=== PATIENT | female | born 1950 | race Caucasian/White ===

== ENCOUNTER 2023-07-16 15:17 | Emergency (ER) | payer MEDICARE, MEDICAID ==
[~2023-07-16] VITALS: Ht 157.5 cm; Wt 75.7 kg
[2023-07-16 15:17] VITALS: BP_SYST 154; PULSE 89; RESP 18; TEMP 98.4; O2SAT 97
[2023-07-16] MEDS ORDERED: METH-776 PO (16:02)
[2023-07-16] MEDS ORDERED: METH2.5T PO (16:02)
== END 2023-07-16 17:04 | disposition home or self-care (01) ==
LOC: SED 15:17
DX: L12.0 Bullous pemphigoid (principal); Z88.0 Allergy status to penicillin; Z88.6 Allergy status to analgesic agent; Z79.899 Other long term (current) drug therapy
CPT/HCPCS: 99283

== ENCOUNTER 2023-12-20 14:44 | Inpatient (IN) | payer MEDICARE, MEDICAID ==
[~2023-12-20] VITALS: Ht 160 cm; Wt 74.8 kg
[~2023-12-20 14:44] MED LIST: METH-776 PO; METH2.5T PO
[2023-12-20 15:06] VITALS: BP_SYST 154; PULSE 112; RESP 18; TEMP 98.3; O2SAT 98
[2023-12-20 16:16] LABS: HEMATOCRIT 36.9 % (36-48); HEMOGLOBIN 12.5 g/dL (12.0-16.0); MEAN CORPUSCULAR HEMOGLOBIN 30 pg (27-31); MEAN CORPUSCULAR HGB CONC 34 % (32-36); MEAN CORPUSCULAR VOLUME 89 fL (79.0-98.0); PLATELET COUNT (AUTO) 201 K/uL (130-430); RED BLOOD CELL COUNT(AUTO) 4.15 MIL/uL (4.2-6.2); RED CELL DISTRIBUTION WIDTH 12.6 % (9.0-15.0); WHITE BLOOD COUNT (AUTO) 24.7 K/uL (4.8-10.8)
[2023-12-20 16:29] LABS: ANION GAP 9 (5-15); CALCIUM 9.9 mg/dL (8.4-11.0); CARBON DIOXIDE 27 mmol/L (23-29); CHLORIDE 99 mmol/L (98-107); GLUCOSE 173 mg/dL (74-106); POTASSIUM 3.9 mmol/L (3.5-5.1); SODIUM SERUM 135 mmol/L (136-145); UREA NITROGEN, BLOOD 20 mg/dL (8-21)
[2023-12-20 18:12] LABS: BAND % (MANUAL) 7 % (0-6); BASOPHILS % (MANUAL) 0 % (0-2); EOSINOPHILS % (MANUAL) 1 % (0-7); LYMPHOCYTES % (MANUAL) 5 % (20-46); MONOCYTES % (MANUAL) 5 % (0-11); PLATELET ESTIMATE ADEQUATE (ADEQUATE)
[2023-12-20] MEDS ORDERED: cefTRIAXone 1 GM VIAL ONE (18:16)
[2023-12-20 18:24] LABS: ALBUMIN 3.4 g/dL (3.4-4.8); BILIRUBIN,DIRECT 0.1 mg/dL (0.0-0.3); TOTAL BILIRUBIN 0.4 mg/dL (0.0-1.0); TOTAL PROTEIN, SERUM 7.8 g/dL (6.4-8.3)
[2023-12-20 18:38] LABS: PROTHROMBIN TIME 10.5 SECS (9.5-12.5)
[2023-12-20] MEDS: NS 500 ML IV ONE (19:09)
[2023-12-20] MEDS: cefTRIAXone 1 GM in D5W 50 ML IV ONE (19:09)
[2023-12-20 19:41] LABS: BILIRUBIN,URINE NEGATIVE (NEGATIVE); BLOOD, URINE 1+ (NEGATIVE); COLOR,URINE YELLOW (YELLOW); GLUCOSE,URINE NEGATIVE (NEGATIVE); KETONES,URINE NEGATIVE (NEGATIVE); LEUKOCYTE ESTERASE ,URINE 3+ (NEGATIVE); NITRITE, URINE NEGATIVE (NEGATIVE); PROTEIN URINE NEGATIVE (NEGATIVE); UROBILINOGEN,URINE 0.2 (0.2-1.0)
[2023-12-20 20:01] LABS: CLARITY/URINE SLIGHTLY HAZY (CLEAR)
[2023-12-20 20:13] LABS: BACTERIA,URINE MODERATE /HPF (None Seen); WBC,URINE 80-100 /HPF (0-3)
[2023-12-20 20:14] LABS: MUCUS,URINE None Seen /LPF (None Seen)
[2023-12-20] MEDS ORDERED: CHLO25TA2 PO (21:42)
[2023-12-20] MEDS ORDERED: CORCR20 PO (21:42)
[2023-12-20] MEDS ORDERED: SSNOVOLOG SUBCUT (21:42)
[2023-12-20] MEDS ORDERED: METF-1069 PO (21:42)
[2023-12-20 21:57] VITALS: BP_SYST 148; PULSE 92; RESP 18; TEMP 97.8
[2023-12-20] MEDS: D5/0.45 NS 1,000 ML IV ONE (22:02)
[2023-12-20 22:07] VITALS: O2SAT 95
[2023-12-21] VITALS: BP_SYST 132; PULSE 74; RESP 16; TEMP 97.9; O2SAT 98
[2023-12-21] MEDS ORDERED: CHLO50TA PO (07:13)
[2023-12-21] MEDS ORDERED: CARV25TA55 PO (07:13)
[2023-12-21] MEDS ORDERED: METF-381 PO (07:13)
[2023-12-21 08:05] VITALS: BP_SYST 138; PULSE 99; RESP 16; TEMP 99; O2SAT 96
[2023-12-21 09:55] VITALS: O2SAT 96
[2023-12-21] MEDS ORDERED: INSULIN ASPART 100 UNITS/ML, 10 ML VIAL (NovoLOG) SUBCUT PRN (10:15)
[2023-12-21 11:39] LABS: BASOPHILS # (AUTO) 0.1 K/uL (0.0-0.2); BASOPHILS % (AUTO) 0.5 % (0.0-2.0); EOSINOPHILS # (AUTO) 0.1 K/uL (0.0-0.4); EOSINOPHILS % (AUTO) 1.1 % (0.0-4.0); HEMATOCRIT 36.7 % (36-48); HEMOGLOBIN 12.6 g/dL (12.0-16.0); LYMPHOCYTES # (AUTO) 1.4 K/uL (1.0-5.5); LYMPHOCYTES % (AUTO) 10.9 % (20.5-51.5); MEAN CORPUSCULAR HEMOGLOBIN 30 pg (27-31); MEAN CORPUSCULAR HGB CONC 34 % (32-36); MEAN CORPUSCULAR VOLUME 88 fL (79.0-98.0); MONOCYTES # (AUTO) 1.5 K/uL (0.0-1.0); MONOCYTES % (AUTO) 11.7 % (1.7-9.3); NEUTROPHILS # (AUTO) 9.6 K/uL (1.8-7.7); NEUTROPHILS % (AUTO) 75.8 % (40.0-70.0); PLATELET COUNT (AUTO) 226 K/uL (130-430); RED BLOOD CELL COUNT(AUTO) 4.16 MIL/uL (4.2-6.2); RED CELL DISTRIBUTION WIDTH 12.3 % (9.0-15.0); WHITE BLOOD COUNT (AUTO) 12.7 K/uL (4.8-10.8)
[2023-12-21 12:57] VITALS: BP_SYST 130; PULSE 89; RESP 19; TEMP 98.3; O2SAT 98
[2023-12-21 16:11] VITALS: BP_SYST 130; PULSE 95; RESP 18; TEMP 99.6; O2SAT 97
[2023-12-21] MEDS: INSULIN LISPRO SLIDING SCALE 100 UNITS/ML, 3 ML VIAL (humaLOG) SUBCUT PRN (17:24)
[2023-12-21] MEDS: metFORMIN HCL 500 MG TABLET PO SCH (18:14)
[2023-12-21 20:00] VITALS: BP_SYST 112; PULSE 93; RESP 16; TEMP 98.9; O2SAT 98
[2023-12-21] MEDS: CEFEPIME 2 GM in D5W 100 ML IV SCH (20:32)
[2023-12-21] MEDS: CARVEDILOL 25 MG TABLET (COREG) PO SCH (20:32)
[2023-12-21] MEDS ORDERED: cefTRIAXone 1 GM in D5W 50 ML IV SCH (21:00)
[2023-12-22] VITALS: BP_SYST 110; PULSE 75; RESP 16; TEMP 99.2; O2SAT 98
[2023-12-22 08:04] LABS: BASOPHILS % (AUTO) 0.4 % (0.0-2.0); EOSINOPHILS # (AUTO) 0.2 K/uL (0.0-0.4); EOSINOPHILS % (AUTO) 1.9 % (0.0-4.0); HEMATOCRIT 35.3 % (36-48); HEMOGLOBIN 12.1 g/dL (12.0-16.0); LYMPHOCYTES # (AUTO) 1.3 K/uL (1.0-5.5); LYMPHOCYTES % (AUTO) 11.8 % (20.5-51.5); MEAN CORPUSCULAR HEMOGLOBIN 30 pg (27-31); MEAN CORPUSCULAR HGB CONC 34 % (32-36); MEAN CORPUSCULAR VOLUME 87 fL (79.0-98.0); MONOCYTES # (AUTO) 1.5 K/uL (0.0-1.0); NEUTROPHILS # (AUTO) 7.7 K/uL (1.8-7.7); NEUTROPHILS % (AUTO) 71.9 % (40.0-70.0); PLATELET COUNT (AUTO) 220 K/uL (130-430); RED BLOOD CELL COUNT(AUTO) 4.04 MIL/uL (4.2-6.2); RED CELL DISTRIBUTION WIDTH 12.1 % (9.0-15.0); WHITE BLOOD COUNT (AUTO) 10.7 K/uL (4.8-10.8)
[2023-12-22 08:18] LABS: ANION GAP 9 (5-15); CALCIUM 9.5 mg/dL (8.4-11.0); CARBON DIOXIDE 29 mmol/L (23-29); CHLORIDE 98 mmol/L (98-107); CREATININE 0.93 mg/dL (0.55-1.30); GLUCOSE 216 mg/dL (74-106); POTASSIUM 3.5 mmol/L (3.5-5.1); SODIUM SERUM 136 mmol/L (136-145); UREA NITROGEN, BLOOD 16 mg/dL (8-21)
[2023-12-22 08:38] VITALS: BP_SYST 132; RESP 16; TEMP 98.6
[2023-12-22] MEDS: CHLORTHALIDONE 25 MG TABLET (HYGROTON) PO SCH (08:47)
[2023-12-22 10:12] VITALS: O2SAT 96
[2023-12-22 11:30] VITALS: BP_SYST 118; RESP 16; TEMP 98.7; O2SAT 96
[2023-12-22 16:17] VITALS: BP_SYST 129; RESP 17; TEMP 97.7; O2SAT 98
[2023-12-22 20:32] VITALS: BP_SYST 120; PULSE 77; RESP 18; TEMP 97.2; O2SAT 98
[2023-12-23 01:04] VITALS: BP_SYST 106; PULSE 67; RESP 17; TEMP 97; O2SAT 98
[2023-12-23 08:00] VITALS: BP_SYST 125; PULSE 81; RESP 16; TEMP 97.2; O2SAT 97
[2023-12-23 08:40] VITALS: O2SAT 97
[2023-12-23] MEDS ORDERED: CIPR500T5 PO (10:17)
[2023-12-23 10:39] VITALS: BP_SYST 114; PULSE 72; RESP 18; TEMP 97.8; O2SAT 96
[2023-12-23 11:01] VITALS: BP_SYST 95; PULSE 75; RESP 18; TEMP 97.6; O2SAT 98
== END 2023-12-23 12:30 | disposition home health service (06) | DRG 872 ==
LOC: SED 14:44 → SMU 20:25
PROVIDERS: ADMIT Specialist; ATTEND Specialist
DX: A41.51 Sepsis due to Escherichia coli [E. coli] (principal); N10 Acute pyelonephritis; Z20.822 Contact with and (suspected) exposure to COVID-19; E11.9 Type 2 diabetes mellitus without complications; E66.9 Obesity, unspecified; Z79.899 Other long term (current) drug therapy; Z88.8 Allergy status to other drugs, medicaments and biological substances; Z68.29 Body mass index [BMI] 29.0-29.9, adult
CPT/HCPCS: 36415; 71045; 76770; 80048; 80076; 81000; 81001; 81015; 82948; 83605; 84484; 85007; 85025; 85027; 85610; 85730; 87040; 87086; 87186; 93005; 97116-GP; 99285; J0692; J0696; J7060